=== PATIENT | male | born 1960 | race Caucasian/White ===

== ENCOUNTER 2020-09-20 16:27 | Emergency (ER) | payer OTHER, SELFPAY ==
--- NOTE | ~2020-09-20 | XR_ITS ---
XR lumbar spine 2-3V 09/20/2020 19:11 Indication: Low back pain Procedure: 3 views lumbar spine Comparison: 06/25/2015 Findings: There are facet degenerative changes at L5-S1. There is mild disc narrowing at L5-S1. No ev idence for fracture, subluxation or spondylolisthesis. Pedicles intact. Sacral foramen are symmetric. Impression: 1: Mild lumbar spondylosis. Reviewed, dictated and finalized at location A. Impression: 1: Mild lumbar spondylosis.
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
[2020-09-20 16:43] VITALS: BP 115/81; PULSE 87; RESP 15; TEMP 36.2; O2SAT 98
[2020-09-20 17:15] VITALS: BP 109/88; PULSE 79; RESP 16; O2SAT 96
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
[2020-09-20 18:05] LABS: Basophils Absolute Auto 0.1 K/mm3 (0.0-0.1); Eosinophils Absolute Auto 0.1 K/mm3 (0-0.3); Eosinophils Percent Auto 1.6 % (0-4.4); Hemoglobin 14.2 g/dL (14.0-18.0); Immature Granulocyte Absolute 0.04 K/mm3 (0.00-0.031); Immature Granulocyte Percent A 0.6 % (0-0.5); Lymphocytes Percent Auto 38.5 % (18.3-44.2); Mean Corpuscular HGB Conc 34.6 g/dl (32-36); Mean Corpuscular Hemoglobin 36.9 pg (26-34); Mean Corpuscular Volume 106.5 fl (80-100); Monocytes Absolute Auto 0.3 K/mm3 (0.1-0.6); Neutrophils Absolute Auto 3.6 K/mm3 (1.3-6.7); Neutrophils Percent Auto 53.3 % (45.5-73.1); Platelet Count Result 121 k/mm3 (150-375); Red Blood Count 3.85 M/mm3 (4.6-6.20); White Blood Count 6.8 K/mm3 (4.5-10.0)
[2020-09-20 18:17] LABS: Anion Gap 10 mmol/L (8-16); Blood Urea Nitrogen 3 mg/dL (9-20); Calcium 8.3 mg/dL (8.4-10.2); Carbon Dioxide 24 mmol/L (22-30); Chloride 107 mmol/L (98-107); Estimated CRCL calculation 146 ml/min; Estimated Glomerular Filt Rate > 60; Glucose 110 mg/dL (75-110); Potassium 4.4 mmol/L (3.4-5.0); Sodium 141 mmol/L (137-145)
[2020-09-20] MEDS: LACTATED RINGERS 1,000 ML 999 ML IV CONT (18:39)
[2020-09-20] MEDS: THIAMINE HCL 200 MG/2 ML VIAL IV PUSH (18:39)
[2020-09-20 19:11] LABS: Ethanol 389 mg/dL (<10)
[2020-09-20 19:13] VITALS: BP 128/92; PULSE 87; RESP 18; O2SAT 100
[2020-09-20 19:15] VITALS: BP 106/70; PULSE 69; RESP 18; O2SAT 95
[2020-09-20 22:15] VITALS: BP 105/68; PULSE 94; RESP 20; O2SAT 95
[2020-09-21 01:51] VITALS: BP 127/96; PULSE 89; RESP 20; O2SAT 99
[2020-09-21 03:57] VITALS: BP 122/75; PULSE 77; RESP 18; O2SAT 97
== END 2020-09-21 04:58 | disposition home or self-care (01) ==
PROVIDERS: Emergency Provider Emergency Medicine; PCP Family Medicine Adolescent Medicine
DX: S02.2XXA Fracture of nasal bones, initial encounter for closed fracture (principal); F10.129 Alcohol abuse with intoxication, unspecified; Y90.8 Blood alcohol level of 240 mg/100 ml or more; F17.200 Nicotine dependence, unspecified, uncomplicated; W01.0XXA Fall on same level from slipping, tripping and stumbling without subsequent striking against object, initial encounter
CPT/HCPCS: 36415; 70450; 70486; 72100; 72125; 80048; 80307; 85025; 96361; 96374; 99284; J3411; J7120